=== PATIENT | female | born 1980 | race Two or more races ===

== ENCOUNTER 2025-01-09 09:42 | Emergency (ER) | payer OTHER ==
[~2025-01-09] VITALS: Ht 167.6 cm; Wt 86.2 kg
[2025-01-09] MEDS ORDERED: SYNTHROID137 MCG PO (10:13)
[2025-01-09] MEDS ORDERED: KETOROLAC TROMETHAMINE 60 MG VIAL IM STA (10:46)
[2025-01-09] MEDS ORDERED: KETOROLAC TROMETHAMINE 60 MG VIAL IM ONE (11:10)
== END 2025-01-09 12:52 | disposition home or self-care (01) ==
LOC: ER 09:44
DX: M25.571 Pain in right ankle and joints of right foot (principal); E03.8 Other specified hypothyroidism